=== PATIENT | female | born 1945 | race Caucasian/White ===

== ENCOUNTER 2018-06-30 14:42 | Emergency (ER) | payer MEDICARE, OTHER ==
[2018-06-30] MEDS ORDERED: TYLENOL EXTRA STRENGTH 500 MG PO STA (15:02)
[2018-06-30] MEDS ORDERED: Adacel Vial IM ONE ×2 (15:02→15:08)
--- NOTE | 2018-06-30 15:07 | ERPHSYRPT ---
- History of Present Illness Time Seen by Provider: 06/30/18 15:04 Source: patient Physician History: trip and fall today by accident, not dizzy, no loc, no neck pain, abrasion right forearm superficial, tender left hip, no NV, ambulating post fall, no other injury, mild positional ache left thigh Allergies/Adverse Reactions: moxifloxacin HCl [From Vigamox] Allergy (Severe, Verified 06/30/18 14:55) blood shot eye Home Medications: Amlodipine Besylate 10 mg [Norvasc 10 MG] 10 mg PO DAILY 10/02/12 [History] Carvedilol 12.5 mg PO BID 10/02/12 [History] Aspirin EC 81 mg [Ecotrin 81 mg] 81 mg PO DAILY 10/31/12 [History] Doxycycline Hyclate 100 mg PO BID 06/30/18 [History] Losartan Potassium 100 mg PO DAILY 06/30/18 [History] Hx Influenza Vaccination/Date Given: Yes Hx Pneumococcal Vaccination/Date Given: Yes - Review of Systems Constitutional: No Fever Eyes: No Vision Changes Ears, Nose, & Throat: No Epistaxis Respiratory: No Dyspnea Cardiac: No Chest Pain Abdominal/Gastrointestinal: No Abdominal Pain Musculoskeletal: Fall, No Back Pain, No Neck Pain Skin: Skin Lesions Neurological: No Dizziness, No Focal Weakness, No Headache - Past Medical History Pertinent Past Medical History: Yes Neurological History: TIA ENT History: Cataracts, Other Cardiac History: Hypertension Respiratory History: Bronchitis, Other Endocrine Medical History: No Pertinent History Musculoskeletal History: Osteoarthritis GI Medical History: No Pertinent History History: No Pertinent History Psycho-Social History: Anxiety Female Reproductive Disorders: No Pertinent History Other Medical History: Injections in the L knee a few years back, notes still has pain. - Past Surgical History Past Surgical History: Yes Neuro Surgical History: No Pertinent History Cardiac: No Pertinent History Respiratory: No Pertinent History Gastrointestinal: Cholecystectomy Genitourinary: No Pertinent History Musculoskeletal: No Pertinent History Female Surgical History: No Pertinent History Other Surgical History: ear surgery on right side, went thru bone. cataract - Social History Smoking Status: Former smoker How long have you smoked: 25yrs Exposure to second hand smoke: No Drug Use: none - Nursing Vital Signs Nursing Vital Signs: Initial Vital Signs Temperature 97.6 F 06/30/18 14:47 Pulse Rate 77 06/30/18 14:47 Respiratory Rate 16 06/30/18 14:47 Blood Pressure 141/47 06/30/18 14:47 O2 Sat by Pulse Oximetry 96 06/30/18 14:47 Pain Scale Pain Intensity 6 - Denys Coma Score Best Eye Response (Denys): (4) open spontaneously Best Verbal Response ([place]): (5) oriented Best Motor Response (Denys): (6) obeys commands Denys Total: 15 - Physical Exam General Appearance: no apparent distress Head Injury: no evidence of injury Eye Exam: eyes nml inspection ENT Exam: airway nml Neck Exam: supple, normal inspection, No tenderness Respiratory/Chest Exam: normal breath sounds, No chest tenderness, No respiratory distress Cardiovascular Exam: regular rate/rhythm Gastrointestinal Exam: soft, No tenderness Back Exam: No vertebral tenderness Extremity Exam: normal range of motion, pelvis stable, other (ori intact, tender left hip and knee, sen and pulses intact) Neurologic Exam: alert, oriented x 3, cooperative, normal mood/affect Skin Exam: abrasion - Course Nursing assessment & vital signs reviewed: Yes - Radiology Exams Femur X-ray Interpretation: Reviewed by me, No Fracture - CT Exams Pelvis CT Interpretation: Negative, Discussed w/radiologist Ordered Tests: Active Orders 24 hr Category Date Time Status FEMUR Stat Exams 06/30/18 15:56 Taken PELVIS WITHOUT CONTRAST [CT] Stat Exams 06/30/18 15:02 Taken Medication Summary Discontinued Medications Generic Name Dose Route Start Last Admin Trade Name Emilie PRN Reason Stop Dose Admin Acetaminophen 500 mg 06/30/18 15:02 06/30/18 15:09 Tylenol Extra Strength 500 Mg PO 06/30/18 15:03 500 mg STAT STA Administration Acetaminophen Confirm 06/30/18 15:08 Tylenol Extra Strength 500 Mg Administered 06/30/18 15:09 Dose 500 mg .ROUTE .STK-MED ONE Diphtheria/Tetanus/Acell Pertussis 0.5 ml 06/30/18 15:02 06/30/18 15:09 Adacel Vial IM 06/30/18 15:03 0.5 ml .ONCE ONE Administration Diphtheria/Tetanus/Acell Pertussis Confirm 06/30/18 15:08 Adacel Vial Administered 06/30/18 15:09 Dose 0.5 ml IM .STK-MED ONE - Progress Progress: improved Progress Note: 06/30/18 17:06 see your doctor, return if worse, ice and tylenol Counseled pt/family regarding: diagnosis, need for follow-up, rad results - Departure Departure Disposition: Home Clinical Impression: Contusion Qualifiers: Encounter type: initial encounter Contusion area: pelvic area Qualified Code(s) : S30.0XXA - Contusion of lower back and pelvis, initial encounter Condition: Stable Critical Care Time: No Referrals: JUANA NIEVES MD [Primary Care Provider] - Instructions: Contusion (DC)
[2018-06-30] MEDS ORDERED: TYLENOL EXTRA STRENGTH 500 MG ONE (15:08)
[2018-06-30 17:26] VITALS: BP 106/54; PULSE 67; O2SAT 94
--- NOTE | 2018-06-30 22:15 | XRAY ---
Indication: Left hip/femur pain following fall. Multiple contiguous axial images obtained through the pelvis with special attention to the osseous structures. Sagittal and coronal reformatted images obtained. Comparison: None Age-related osteopenia. No acute fracture, dislocation, or suspicious bony lesions. Incidental degenerative changes of the lower lumbar spine. Visualized noncontrasted soft tissues demonstrates sigmoid diverticulosis and mild scattered vascular calcifications. No free fluid/air. Impression: 1. Negative acute fracture/dislocation. 2. Incidental osteopenia, degenerative changes, and sigmoid diverticulosis. Comment: Preliminary interpretation was made by [facility]. No discrepancy. CTDI 58.04
--- NOTE | 2018-06-30 22:15 | XRAY ---
Indication: Pain following fall. Comparison: None 2 views of the left femur demonstrates osteopenia and moderate tricompartmental knee degenerative changes. No other bony, articular, or soft tissue abnormalities.
== END 2018-06-30 17:15 | disposition home or self-care (01) ==
LOC: ED 14:42
DX: S30.0XXA Contusion of lower back and pelvis, initial encounter (principal); Z79.899 Other long term (current) drug therapy; I10 Essential (primary) hypertension; Z86.73 Personal history of transient ischemic attack (TIA), and cerebral infarction without residual deficits
CPT/HCPCS: 72192; 73552; 90471; 90715; 99284; A9270-GY

== ENCOUNTER 2021-03-22 09:14 | Emergency (ER) | payer MEDICARE ==
[2021-03-22] MEDS ORDERED: XYLOCAINE 1% HCL 20 ML MDV IJ ONE (09:15)
[2021-03-22 09:35] VITALS: BP 139/79; PULSE 74
[2021-03-22] MEDS ORDERED: DELTASONE 20 MG PO ONE (09:50)
[2021-03-22] MEDS ORDERED: DUONEB 0.5-3 MG/3 ml Neb IH ONE ×2 (09:50→10:26)
[2021-03-22] MEDS ORDERED: DELTASONE 20 MG ONE (10:02)
--- NOTE | 2021-03-22 10:06 | ERPHSYRPT ---
- History of Present Illness Time Seen by Provider: 03/22/21 09:40 Source: patient Exam Limitations: no limitations Patient Subjective Stated Complaint: Cough Triage Nursing Assessment: Patient brought back to ED via w/c and transferred self to bed. Patient A+O X 3. Patient's skin pink, warm and dry. Patient complains of non productive cough for two weeks. Patient states she was COVID Positive two weeks ago. Lungs clear a/p cisco. Physician History: Patient is a 75-year-old female presents to our ED with a 3-week history of cough. Patient was Covid positive approximately 2 weeks ago. Patient has had a residual dry cough since. No chest pain. No shortness of breath. No posttussive emesis or syncope. Symptoms are mild to moderate in intensity. No specific worsening improving factors. Patient denies history of the same. No associated nausea vomiting. No diarrhea. No rash. No fever. No trauma. Patient voices no other complaints or concerns at this time. Timing/Duration: week(s) (3 weeks) Cough Quality/Degree: dry cough Possible Cause: no prior episodes, illness exposure Associated Symptoms: denies symptoms Allergies/Adverse Reactions: moxifloxacin HCl [From Vigamox] Allergy (Severe, Verified 03/22/21 09:25) blood shot eye Home Medications: Amlodipine Besylate 10 mg [Norvasc 10 MG] 10 mg PO DAILY 10/02/12 [History] carvediloL [Carvedilol] 12.5 mg PO BID 10/02/12 [History] Aspirin EC 81 mg [Ecotrin 81 mg] 81 mg PO DAILY 10/31/12 [History] Losartan Potassium 100 mg PO DAILY 06/30/18 [History] Hx Tetanus, Diphtheria Vaccination/Date Given: No Hx Influenza Vaccination/Date Given: Yes Hx Pneumococcal Vaccination/Date Given: No Immunizations Up to Date: Yes Travel Risk - International Travel Have you traveled outside of the country in past 3 weeks: No - Coronavirus Screening Are you exhibiting any of the following symptoms?: Yes Symptoms: Cough: New Onset, Shortness of Breath, Vomiting/Diarrhea, Headaches/Body Aches/Fatigue - Vaccine Status Have you recieved a Covid-19 vaccination: No - Review of Systems Constitutional: No Symptoms, No Fever, No Chills Eyes: No Symptoms Ears, Nose, & Throat: No Symptoms Respiratory: No Symptoms, No Cough, No Dyspnea Cardiac: No Symptoms, No Chest Pain, No Edema, No Syncope Abdominal/Gastrointestinal: No Symptoms, No Abdominal Pain, No Nausea, No Vomiting, No Diarrhea Genitourinary Symptoms: No Symptoms, No Dysuria Musculoskeletal: No Symptoms, No Back Pain, No Neck Pain Skin: No Symptoms, No Rash Neurological: No Symptoms, No Dizziness, No Focal Weakness, No Sensory Changes Psychological: No Symptoms Endocrine: No Symptoms Hematologic/Lymphatic: No Symptoms Immunological/Allergic: No Symptoms All Other Systems: Reviewed and Negative - Past Medical History Pertinent Past Medical History: Yes Neurological History: Stroke ENT History: Cataracts, Other Cardiac History: High Cholesterol, Hypertension Respiratory History: Bronchitis Endocrine Medical History: Liver Disease Musculoskeletal History: Osteoarthritis GI Medical History: No Pertinent History History: No Pertinent History Psycho-Social History: Anxiety Female Reproductive Disorders: No Pertinent History Other Medical History: SX HX: CHOLECYSTECTOMY AND "EAR" SURGERY. PER PATIENT SAW DR BERNARDO A FEW YEARS AGO DR [place]AY THOUGHT SHE MIGHT HAVE MS - Past Surgical History Past Surgical History: Yes Neuro Surgical History: No Pertinent History Cardiac: No Pertinent History Respiratory: No Pertinent History Gastrointestinal: Cholecystectomy Genitourinary: No Pertinent History Musculoskeletal: No Pertinent History Female Surgical History: No Pertinent History Other Surgical History: ear surgery on right side, went thru bone. cataract - Social History Smoking Status: Former smoker How long have you smoked: 25yrs Exposure to second hand smoke: No Drug Use: none Patient Lives Alone: No - Female History Hx Now: No - Nursing Vital Signs Nursing Vital Signs: Initial Vital Signs Temperature 98.0 F 03/22/21 09:29 Pulse Rate 74 03/22/21 09:29 Respiratory Rate 18 03/22/21 09:29 Blood Pressure 139/79 03/22/21 09:29 O2 Sat by Pulse Oximetry 97 03/22/21 09:29 Pain Scale Pain Intensity 0 - Physical Exam General Appearance: no apparent distress, alert Eye Exam: PERRL/EOMI, eyes nml inspection Ears, Nose, Throat Exam: normal ENT inspection, TMs normal, pharynx normal, moist mucous membranes Neck Exam: normal inspection, non-tender, supple, full range of motion Respiratory Exam: normal breath sounds, lungs clear, airway intact, No respiratory distress Cardiovascular Exam: regular rate/rhythm, normal heart sounds, normal peripheral pulses Gastrointestinal/Abdomen Exam: soft, normal bowel sounds, No tenderness Back Exam: normal inspection, No CVA tenderness, No vertebral tenderness Extremity Exam: normal inspection, normal range of motion Neurologic Exam: alert, oriented x 3, cooperative, normal mood/affect, sensation nml, No motor deficits Skin Exam: normal color, warm, dry, No rash Lymphatic Exam: No adenopathy SpO2 Interpretation: normal SpO2: 97 O2 Delivery: Room Air - Course Nursing assessment & vital signs reviewed: Yes - Radiology Exams Chest X-ray Interpretation: Teleradiologist Report (Portable chest demonstrates new mild diffuse hazy interstitial alveolar opacities left greater than right. Heart not enlarged. Bony thorax intact again with osteopenia degenerative changes and scoliosis.) Ordered Tests: Active Orders 24 hr Category Date Time Status CHEST 1 VIEW (PORTABLE) Stat Exams 03/22/21 09:40 Completed Medication Summary Discontinued Medications Generic Name Dose Route Start Last Admin Trade Name Freq PRN Reason Stop Dose Admin Albuterol/Ipratropium 3 ml 03/22/21 09:50 Ipratropium/Albuterol Sulfate 3 Ml Ampul.Neb IH 03/22/21 09:51 STAT ONE Ceftriaxone Sodium 1,000 mg 03/22/21 10:11 Ceftriaxone Sodium 1000 Mg Inj Vial IM 03/22/21 10:12 STAT ONE Prednisone 60 mg 03/22/21 09:50 03/22/21 10:03 Prednisone 20 Mg Tablet PO 03/22/21 09:51 60 mg STAT ONE Administration Prednisone Confirm 03/22/21 10:02 Prednisone 20 Mg Tablet Administered 03/22/21 10:03 Dose 60 mg .ROUTE .STK-MED ONE - Progress Progress: improved Air Movement: good Progress Note: Patient reassessed. She feels better after breathing treatment. Cough improved. Chest x-ray reveals new mild diffuse hazy interstitial alveolar opacities. Left greater than right. Heart not enlarged. Bony thorax intact. Osteopenia degenerative changes and scoliosis. O2 sat during ambulation/exertion is within normal limits. Vitals are normal. Patient received a dose of Rocephin in our ED. She also received a breathing treatment as well. A dose of prednisone was administered. Patient will be discharged home. Patient discharged home with a prescription for albuterol/Ventolin inhaler. A prescription for prednisone and azithromycin was forwarded to patient's pharmacy. Patient may take [id number] cough suppressants as needed. Patient agrees to follow-up with primary care doctor within 48 hours for evaluation. She voices no other complaints or concerns at this time. Portions of this note were created with voice recognition technology. There may be grammatical, spelling, punctuation or sound alike errors 03/22/21 10:17 Vitals are within normal limits. Blood pressure 112/57. Heart rate 74. O2 sat 97%. Patient afebrile 03/22/21 10:19 Blood Culture(s) Obtained: No Antibiotics given: No Counseled pt/family regarding: diagnosis, need for follow-up, rad results - Departure Departure Disposition: Home Clinical Impression: Cough, Pneumonia, Bronchitis Condition: Stable Critical Care Time: No Referrals: JOHNNY BERMAN [Primary Care Provider] - Follow up/PCP as directed Additional Instructions: Discharge/Care Plan EKATERINAHAWK WINTER was seen on 03/22/21 in the Emergency Room. The patient was counseled regarding Diagnosis,Lab results, Imaging studies, need for follow up and when to return to the Emergency Room. Prescriptions given: Discharge Note I have spoken with the patient and/or caregivers. I have explained the patient's condition, diagnosis and treatment plan based on the information available to me at this time. I have answered the patient's and/or caregiver's questions and addressed any concerns. The patient and/or caregivers have as good understanding of the patient's diagnosis, condition and treatment plan as can be expected at this point. The vital signs have been stable. The patient's condition is stable and appropriate for discharge from the emergency department. The patient will pursue further outpatient evaluation with the primary care physician or other designated or consulting physician as outlined in the discharge instructions. The patient and/or caregivers are agreeable to this plan of care and follow-up instructions have been explained in detail. The patient and/or caregivers have received these instruction. The patient/and or caregivers are aware that any significant change in condition or worsening of symptoms should prompt an immediate return to this or the closest emergency department or call 911. Prescriptions: Prednisone 10 mg [Deltasone 10 mg] 40 mg PO DAILY 3 Days #12 tablet Albuterol 8 gm Mdi Hfa [Ventolin Hfa MDI] 8 gm IH Q4H #1 gm Azithromycin 250 mg [Zithromax 250 MG TABLET] 250 mg PO ZPACK #6 tablet
--- NOTE | 2021-03-22 10:06 | XRAY ---
Indication: Cough. Comparison: There are 2014. Portable chest demonstrates new mild diffuse hazy interstitial alveolar opacities, left greater than right. Heart not enlarged. Bony thorax intact again with osteopenia, degenerative changes, and scoliosis.
[2021-03-22] MEDS ORDERED: Rocephin 1000 MG INJ IM ONE (10:11)
[2021-03-22] MEDS ORDERED: Rocephin 1000 MG INJ ONE (10:36)
[2021-03-22 10:51] VITALS: O2SAT 94
== END 2021-03-22 11:13 | disposition home or self-care (01) ==
LOC: ED 09:14
DX: J18.9 Pneumonia, unspecified organism (principal); J20.9 Acute bronchitis, unspecified; R05.9 Cough, unspecified; Z86.16 Personal history of COVID-19; E78.5 Hyperlipidemia, unspecified; I10 Essential (primary) hypertension; Z79.52 Long term (current) use of systemic steroids; Z79.899 Other long term (current) drug therapy
CPT/HCPCS: 71045; 94640; 96372; 99284; J0696; A9270-GY

== ENCOUNTER 2022-10-12 10:58 | Emergency (ER) | payer MEDICARE ==
--- NOTE | 2022-10-12 11:03 | ERPHSYRPT ---
- History of Present Illness Time Seen by Provider: 10/12/22 11:02 Historian: patient Exam Limitations: no limitations Physician History: This is a 77-year-old obese white female patient of Dr. Bojorquez who is her primary care provider, Dr. Lamb who is her mill representative and Dr. Pinedo, who is her fitness assistant and presents with substernal, central, nonradiating chest tightness that has been intermittent since last evening. This morning the tightness became more intense. Patient saw her fitness assistant 1 week ago and was given a clean bill of health per her report. Patient is not short of breath. She does have a history of hypertension and wears oxygen at night for COPD issues. She has a history of CVA, TIAs and anxiety. Additional, independent medical history was provided by the patient's son. Timing/Duration: yesterday, intermittent, worse Activities at Onset: none Quality: tightness Location: substernal, central Chest Pain Radiation: no radiation Severity of Pain-Max: mild Severity of Pain-Current: mild (Moderate to moderate) Associated Symptoms: denies symptoms Prior Chest Pain/Cardiac Workup: recently seen/treated (By her fitness assistant) Nitro Today/Relief: no nitro taken today Aspirin Treatment Today: 81 mg x 1, provided at home Allergies/Adverse Reactions: moxifloxacin HCl [From Vigamox] Allergy (Severe, Verified 03/22/21 09:25) blood shot eye Home Medications: Amlodipine Besylate 10 mg [Norvasc 10 MG] 10 mg PO DAILY 10/02/12 [History] carvediloL [Carvedilol] 12.5 mg PO BID 10/02/12 [History] Aspirin EC 81 mg [Ecotrin 81 mg] 81 mg PO DAILY 10/31/12 [History] Losartan Potassium 100 mg PO DAILY 06/30/18 [History] Hx Tetanus, Diphtheria Vaccination/Date Given: No Hx Influenza Vaccination/Date Given: Yes Hx Pneumococcal Vaccination/Date Given: No Travel Risk - International Travel Have you traveled outside of the country in past 3 weeks: No - Coronavirus Screening Are you exhibiting any of the following symptoms?: No Close contact with a COVID-19 positive Pt in past 14-21 Days: No - Vaccine Status Have you recieved a Covid-19 vaccination: No - Review of Systems Constitutional: No Symptoms Eyes: No Symptoms Ears, Nose, & Throat: No Symptoms Respiratory: No Symptoms Cardiac: Chest Pain (Described as a nonradiating substernal, central tightness) Abdominal/Gastrointestinal: No Symptoms Genitourinary Symptoms: No Symptoms Musculoskeletal: No Symptoms Skin: No Symptoms Neurological: No Symptoms Psychological: No Symptoms Endocrine: No Symptoms Hematologic/Lymphatic: No Symptoms Immunological/Allergic: No Symptoms All Other Systems: Reviewed and Negative - Past Medical History Pertinent Past Medical History: Yes Neurological History: Stroke, TIA ENT History: Cataracts, Other Cardiac History: Hypertension Respiratory History: Other Endocrine Medical History: Other Musculoskeletal History: Osteoarthritis GI Medical History: No Pertinent History History: No Pertinent History Psycho-Social History: Anxiety Female Reproductive Disorders: No Pertinent History Other Medical History: HISTORY OF MINI-STROKES, A CT SCAN SHOWED A PRIOR CVA. PROBLEMS WITH LIVER AND KIDNEYS, SHE IS TO SEE BOTH DOCTORS SOON. SOB. SHE USES O2 AT NIGHT, UNSURE OF THE AMOUNT SHE USES. - Past Surgical History Past Surgical History: Yes Neuro Surgical History: No Pertinent History Cardiac: No Pertinent History Respiratory: No Pertinent History Gastrointestinal: Cholecystectomy Genitourinary: No Pertinent History Musculoskeletal: No Pertinent History Female Surgical History: No Pertinent History Other Surgical History: ear surgery on right side, went thru bone. cataract - Social History Smoking Status: Former smoker How long have you smoked: 25yrs Exposure to second hand smoke: No Drug Use: none Patient Lives Alone: No - Nursing Vital Signs Nursing Vital Signs: Initial Vital Signs Temperature 98.7 F 10/12/22 11:00 Pulse Rate 62 10/12/22 11:00 Respiratory Rate 20 10/12/22 11:00 Blood Pressure 145/91 10/12/22 11:00 O2 Sat by Pulse Oximetry 99 10/12/22 11:00 Pain Scale Pain Intensity 0 - Physical Exam General Appearance: no apparent distress, alert, anxiety, obese Eye Exam: PERRL/EOMI, eyes nml inspection, EOM palsy/anisocoria Ears, Nose, Throat Exam: moist mucous membranes Neck Exam: normal inspection, non-tender, supple, full range of motion Respiratory Exam: normal breath sounds, chest tenderness, lungs clear (Described as a tightness), airway intact, No respiratory distress Cardiovascular Exam: regular rate/rhythm, normal heart sounds, normal peripheral pulses Gastrointestinal/Abdomen Exam: soft, normal bowel sounds, No tenderness Pelvic Exam: not done Rectal Exam: not done Back Exam: normal inspection, normal range of motion, No CVA tenderness, No vertebral tenderness Extremity Exam: normal inspection, normal range of motion, pelvis stable Neurologic Exam: alert, oriented x 3, cooperative, 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 nml as tested, normal mood/affect, nml cerebellar function, nml station & gait, sensation nml Skin Exam: normal color, warm, dry Lymphatic Exam: No adenopathy SpO2 Interpretation: normal O2 Delivery: Room Air - Course Nursing assessment & vital signs reviewed: Yes EKG Interpreted by Me: RATE (61), Sinus Rhythm, NORMAL AXIS, NORMAL INTERVALS, Left Bundle Branch Block, NORMAL ST-T, Other (No acute ischemic changes on today's twelve-lead EKG.) Ordered Tests: Active Orders 24 hr Category Date Time Status EKG-ER Only STAT Care 10/12/22 11:16 Active IV Insertion STAT Care 10/12/22 11:16 Active Pulse Oximetry (ED) STAT Care 10/12/22 11:16 Active CHEST 1 VIEW (PORTABLE) Stat Exams 10/12/22 11:16 Completed CBC W DIFF Stat Lab 10/12/22 11:20 Completed CMP Stat Lab 10/12/22 11:20 Completed NT PRO BNPII Stat Lab 10/12/22 11:20 Completed PROTIME WITH INR Stat Lab 10/12/22 11:20 Completed TROPONIN Q4H Lab 10/12/22 11:20 Completed TROPONIN Q4H Lab 10/12/22 14:20 Completed TROPONIN Q4H Lab 10/12/22 19:30 Ordered Medication Summary Generic Name Dose Route Start Last Admin Trade Name Freq PRN Reason Stop Dose Admin Sodium Chloride 500 mls @ 500 mls/hr 10/12/22 15:07 10/12/22 15:11 Sodium Chloride 0.9% 500 Ml IV 10/12/22 16:06 500 mls/hr .Q1H ONE Administration Discontinued Medications Generic Name Dose Route Start Last Admin Trade Name Freq PRN Reason Stop Dose Admin Aspirin 324 mg 10/12/22 11:16 10/12/22 11:20 Aspirin 81 Mg Tab.Chew PO 10/12/22 11:17 243 mg STAT ONE Administration Sodium Chloride Confirm 10/12/22 15:09 Sodium Chloride 0.9% 500 Ml Administered 10/12/22 15:10 Dose 500 mls @ ud IV .STK-MED ONE Morphine Sulfate 2 mg 10/12/22 11:28 10/12/22 11:33 Morphine Sulfate 2 Mg/Ml Inj IV 10/12/22 11:29 2 mg STAT ONE Administration Morphine Sulfate Confirm 10/12/22 11:33 Morphine Sulfate 2 Mg/Ml Inj Administered 10/12/22 11:34 Dose 2 mg .ROUTE .STK-MED ONE Morphine Sulfate 2 mg 10/12/22 13:39 10/12/22 13:44 Morphine Sulfate 2 Mg/Ml Inj IV 10/12/22 13:40 2 mg STAT ONE Administration Morphine Sulfate Confirm 10/12/22 13:44 Morphine Sulfate 2 Mg/Ml Inj Administered 10/12/22 13:45 Dose 2 mg .ROUTE .STK-MED ONE Ondansetron HCl 4 mg 10/12/22 11:28 10/12/22 11:33 Ondansetron Hcl 4 Mg/2 Ml Vial IV 10/12/22 11:29 4 mg STAT ONE Administration Ondansetron HCl Confirm 10/12/22 11:32 Ondansetron Hcl 4 Mg/2 Ml Vial Administered 10/12/22 11:33 Dose 4 mg .ROUTE .STK-MED ONE Lab/Rad Data: Laboratory Result Diagrams 10/12/22 11:20 10/12/22 11:20 Laboratory Results 10/12/22 10/12/22 10/12/22 Range/Units 14:20 11:20 11:20 WBC (4.0-10.5) x10^3/uL RBC (4.1-5.4) x10^6/uL Hgb (12.0-16.0) g/dL Hct (35-47) % MCV (78-100) fL MCH (26-32) pg MCHC (32-36) g/dL RDW (11.5-14.0) % Plt Count (150-450) x10^3/uL MPV (7.5-11.0) fL Gran % (36.0-66.0) % Immature Gran % (Auto) (0.00-0.4) % Nucleat RBC Rel Count (0.00-0.1) % Eos # (Auto) (0-0.5) x10^3/uL Immature Gran # (Auto) (0.00-0.03) x10^3u/L Absolute Lymphs (auto) (1.0-4.6) x10^3/uL Absolute Monos (auto) (0.0-1.3) x10^3/uL Absolute Nucleated RBC (0.00-0.01) x10^3u/L Lymphocytes % (24.0-44.0) % Monocytes % (0.0-12.0) % Eosinophils % (0.00-5.0) % Basophils % (0.0-0.4) % Absolute Granulocytes (1.4-6.9) x10^3/uL Basophils # (0-0.4) x10^3/uL PT 11.2 (9.4-12.5) SECONDS INR 1.03 (0.8-3.0) Sodium (137-145) mmol/L Potassium (3.5-5.1) mmol/L Chloride (98-107) mmol/L Carbon Dioxide (22-30) mmol/L Anion Gap (5-15) MEQ/L BUN (7-17) mg/dL Creatinine (0.52-1.04) mg/dL Estimated GFR ML/MIN Glucose (74-106) mg/dL Calcium (8.4-10.2) mg/dL Total Bilirubin (0.2-1.3) mg/dL AST (14-36) U/L ALT (0-35) U/L Alkaline Phosphatase (38-126) U/L Troponin I 0.014 0.020 (0.000-0.034) ng/mL NT-Pro-B Natriuret Pep 475 (<300) pg/mL Serum Total Protein (6.3-8.2) g/dL Albumin (3.5-5.0) g/dL 10/12/22 10/12/22 Range/Units 11:20 11:20 WBC 4.7 (4.0-10.5) x10^3/uL RBC 4.50 (4.1-5.4) x10^6/uL Hgb 14.8 (12.0-16.0) g/dL Hct 43.4 (35-47) % MCV 96.4 (78-100) fL MCH 32.9 H (26-32) pg MCHC 34.1 (32-36) g/dL RDW 12.2 (11.5-14.0) % Plt Count 178 (150-450) x10^3/uL MPV 10.2 (7.5-11.0) fL Gran % 45.0 (36.0-66.0) % Immature Gran % (Auto) 0.2 (0.00-0.4) % Nucleat RBC Rel Count 0.0 (0.00-0.1) % Eos # (Auto) 0.13 (0-0.5) x10^3/uL Immature Gran # (Auto) 0.01 (0.00-0.03) x10^3u/L Absolute Lymphs (auto) 1.80 (1.0-4.6) x10^3/uL Absolute Monos (auto) 0.58 (0.0-1.3) x10^3/uL Absolute Nucleated RBC 0.00 (0.00-0.01) x10^3u/L Lymphocytes % 38.5 (24.0-44.0) % Monocytes % 12.4 H (0.0-12.0) % Eosinophils % 2.8 (0.00-5.0) % Basophils % 1.1 (0.0-0.4) % Absolute Granulocytes 2.11 (1.4-6.9) x10^3/uL Basophils # 0.05 (0-0.4) x10^3/uL PT (9.4-12.5) SECONDS INR (0.8-3.0) Sodium 139 (137-145) mmol/L Potassium 3.9 (3.5-5.1) mmol/L Chloride 102 (98-107) mmol/L Carbon Dioxide 27 (22-30) mmol/L Anion Gap 13.3 (5-15) MEQ/L BUN 22 H (7-17) mg/dL Creatinine 1.02 (0.52-1.04) mg/dL Estimated GFR 55.7 ML/MIN Glucose 115 H (74-106) mg/dL Calcium 9.6 (8.4-10.2) mg/dL Total Bilirubin 4.50 H (0.2-1.3) mg/dL AST 55 H (14-36) U/L ALT 41 H (0-35) U/L Alkaline Phosphatase 77 (38-126) U/L Troponin I (0.000-0.034) ng/mL NT-Pro-B Natriuret Pep (<300) pg/mL Serum Total Protein 6.8 (6.3-8.2) g/dL Albumin 4.4 (3.5-5.0) g/dL - Progress Progress: improved, re-examined Air Movement: good Progress Note: 10/12/22 12:46 The chest x-ray was interpreted by the radiologist and I reviewed the impression. There is no evidence of any acute cardiopulmonary process. This patient's medical issue is 1 of moderate complexity. Level complexity in the work-up performed is based on review of the patient's past medical history, review the patient's medication list, review of the patient's drug allergy list, history of present illness and physical findings on examination. The work-up includes twelve-lead EKG, placement of intravenous line, 324 mg baby aspirin chewable, CBC, CMP, troponin level, chest x-ray. The above stated work-up results were reviewed and interpreted by me except for the chest x-ray which I reviewed the impression. Patient initial work-up shows no acute, emergent medical issue. We will repeat the troponin and twelve-lead EKG in 3 hours from the initial. If this is normal we will discharge the patient to home with instruction to follow-up with her primary care provider and fitness assistant for further management. 10/12/22 16:02 Patient has had 2 twelve-lead EKGs do not show any acute ischemic changes. The repeat, 3-hour EKG shows a normal sinus rhythm with a heart rate of 61 bpm. There is persistent left bundle branch block but no evidence of acute ischemia. It is unchanged from the prior twelve-lead EKG. This twelve-lead EKG was performed on 10/12/2022 at 1457. 10/12/22 16:03 Patient received morphine x2 doses and this dropped her blood pressure slightly. We provided her with a 500 mL bolus of saline and now her systolic blood pressure is in the 110s. She states that she no longer has that pain sensation but only very minor tightness. Patient and her son both stated that her blood pressure has been slowly decreasing over the last few weeks and her fitness assistant has been decreasing her blood pressure medication. Blood Culture(s) Obtained: Yes Antibiotics given: No Counseled pt/family regarding: lab results, diagnosis, need for follow-up, rad results Medical Desision Making - Independent Historian Additional History obtained from: Child - Diagnostic Testing Diagnostic test were ordered, analyzed, and reviewed by me: Yes Radiological Interpretation: Reviewed by me, Teleradiologist Report - Risk of complications Low Risk: Low risk of morbidity from additional dx testing or treatment - Departure Departure Disposition: Home Clinical Impression: Chest tightness Condition: Stable Critical Care Time: No Referrals: CAMILLA BOJORQUEZ MD [Primary Care Provider] - Follow up/PCP as directed Additional Instructions: Hold your blood pressure medication until you speak with your prescribing provider. Contact both your primary care provider and your fitness assistant tomorrow, 10/13/2022, for further evaluation and management. Keep a log of your blood pressure readings for tonight and tomorrow and let your providers know what those readings are without your blood pressure medication. Return to the emergency department if your symptoms recur.
[2022-10-12 11:06] VITALS: TEMP 98.7
[2022-10-12] MEDS ORDERED: BABY ASPIRIN 81 MG CHEW PO ONE (11:16)
[2022-10-12] MEDS ORDERED: Zofran 4 MG/2 ML VIAL IV ONE (11:28)
[2022-10-12] MEDS ORDERED: MORPHINE SULFATE 2 MG INJ IV ONE ×2 (11:28→13:39)
[2022-10-12 11:31] LABS: Absolute Neutrophil Ct (ANC) 2.11 x10^3/uL (1.4-6.9); BASOPHIL % 1.1 % (0.0-0.4); Basophil (Absolute #) 0.05 x10^3/uL (0-0.4); Eosinophil % 2.8 % (0.00-5.0); Eosinophil (Absolute #) 0.13 x10^3/uL (0-0.5); Hematocrit 43.4 % (35-47); Hemoglobin 14.8 g/dL (12.0-16.0); IMMATURE GRAN # 0.01 x10^3u/L (0.00-0.03); IMMATURE GRAN % 0.2 % (0.00-0.4); Lymphocytes % 38.5 % (24.0-44.0); Mean Cell Volume 96.4 fL (78-100); Mean Corpuscular Hemoglobin 32.9 pg (26-32); Mean Corpuscular Hgb Concent. 34.1 g/dL (32-36); Mean Platelet Volume 10.2 fL (7.5-11.0); Monocyte (Absolute #) 0.58 x10^3/uL (0.0-1.3); Monocytes % 12.4 % (0.0-12.0); Platelet Count 178 x10^3/uL (150-450); Red Cell Distribution Width 12.2 % (11.5-14.0); White Blood Count 4.7 x10^3/uL (4.0-10.5)
[2022-10-12] MEDS ORDERED: Zofran 4 MG/2 ML VIAL ONE (11:32)
[2022-10-12] MEDS ORDERED: MORPHINE SULFATE 2 MG INJ ONE ×2 (11:33→13:44)
[2022-10-12 11:45] LABS: ALBUMIN 4.4 g/dL (3.5-5.0); ANION GAP 13.3 MEQ/L (5-15); BILIRUBIN,TOTAL 4.5 mg/dL (0.2-1.3); Calcium 9.6 mg/dL (8.4-10.2); Creatinine 1 1.02 mg/dL (0.52-1.04); EST GLOMERULAR FILTRATION RATE 55.7 ML/MIN; Potassium 3.9 mmol/L (3.5-5.1); Total Protein 6.8 g/dL (6.3-8.2)
[2022-10-12 11:46] LABS: INR 1.03 (0.8-3.0); PROTIME 11.2 SECONDS (9.4-12.5)
[2022-10-12 11:57] LABS: TROPONIN 0.02 ng/mL (0.000-0.034)
--- NOTE | 2022-10-12 12:16 | XRAY ---
Indication: Chest pain. Comparison: March 29, 2021 Portable chest is now clear. Heart not enlarged. Bony thorax intact again with osteopenia and mild degenerative changes. Impression: Nonacute chest with chronic features.
[2022-10-12] MEDS ORDERED: Sodium Chloride 0.9% 500 ML 500 ML IV ONE ×2 (15:07→15:09)
[2022-10-12 16:27] VITALS: BP 110/50; PULSE 61; RESP 24; O2SAT 95
== END 2022-10-12 16:38 | disposition home or self-care (01) ==
LOC: ED 10:58
DX: R07.9 Chest pain, unspecified (principal); I10 Essential (primary) hypertension; Z79.899 Other long term (current) drug therapy; Z28.310 Unvaccinated for COVID-19; Z99.81 Dependence on supplemental oxygen; Z86.73 Personal history of transient ischemic attack (TIA), and cerebral infarction without residual deficits
CPT/HCPCS: 36000; 36415; 71045; 80053; 83880; 84484; 85025; 85610; 93005; 94760; 96360; 96374; 96375; 96376; 99284; J2270; J2405; A9270-GY

== ENCOUNTER 2023-08-14 11:52 | Emergency (ER) | payer MEDICARE, OTHER ==
[2023-08-14 12:10] VITALS: PULSE 54; RESP 18; TEMP 97.7
--- NOTE | 2023-08-14 12:49 | ERPHSYRPT ---
- History of Present Illness Time Seen by Provider: 08/14/23 12:49 Source: patient Exam Limitations: no limitations Patient Subjective Stated Complaint: Back pain Triage Nursing Assessment: Patient brought back to ED per w/c and transferred self to bed with assist 1. Patient A+O X3. Patient's skin pink, warm and dry. Patient complains of lower mid back pain 8/10 for the last few weeks. Patient denies injury or trauma. Physician History: Sent over from Dr. Weiner office with concern of cauda equina syndrome. The patient, with a history of chronic back pain, presents with a significant increase in pain severity over the last three days. The pain is localized to the middle of the lower back and does not radiate to either side. They deny any recent changes or precipitating events. They have had previous imaging, believed to be an MRI, but have never received injections for their back pain. In addition to the back pain, the patient reports a loss of bladder control that began two to three months ago. They deny any numbness or tingling in their legs, although they did note a slight tingling sensation when examined. The patient also reports difficulty with mobility, including an inability to climb stairs or sit up from a lying position. The patient is resistant to the idea of undergoing an MRI due to the severity of their pain, expressing concern that they would not be able to tolerate the procedure. Timing/Duration: day(s) (3), worse Method of Injury: unknown Quality: sharp, stabbing Back Pain Location: lumbar spine Severity of Pain-Max: severe Severity of Pain-Current: severe Modifying Factors: Worsens With: movement Associated Symptoms: urinary incontinence, loss of bowel control, No fever, No chills Previous symptoms: same symptoms as today Allergies/Adverse Reactions: moxifloxacin HCl [From Vigamox] Allergy (Severe, Verified 08/14/23 12:00) blood shot eye Home Medications: Amlodipine Besylate 10 mg [Norvasc 10 MG] 10 mg PO DAILY 10/02/12 [History] carvediloL [Carvedilol] 12.5 mg PO BID 10/02/12 [History] Aspirin EC 81 mg [Ecotrin 81 mg] 81 mg PO DAILY 10/31/12 [History] Losartan Potassium 100 mg PO DAILY 05/18/19 [History] Hx Tetanus, Diphtheria Vaccination/Date Given: No Hx Influenza Vaccination/Date Given: Yes Hx Pneumococcal Vaccination/Date Given: Yes Immunizations Up to Date: Yes Travel Risk - International Travel Have you traveled outside of the country in past 3 weeks: No - Emerging Infectious Disease Are you exhibiting symptoms associated with any current EIDs: No - Review of Systems All Other Systems: Reviewed and Negative - Past Medical History Pertinent Past Medical History: Yes Neurological History: Stroke, TIA ENT History: Cataracts, Other Cardiac History: Hypertension Respiratory History: Other Endocrine Medical History: Other Musculoskeletal History: Osteoarthritis GI Medical History: No Pertinent History History: No Pertinent History Psycho-Social History: Anxiety Female Reproductive Disorders: No Pertinent History Other Medical History: HISTORY OF MINI-STROKES, A CT SCAN SHOWED A PRIOR CVA. PROBLEMS WITH LIVER AND KIDNEYS, SHE IS TO SEE BOTH DOCTORS SOON. SOB. SHE USES O2 AT NIGHT, UNSURE OF THE AMOUNT SHE USES. - Past Surgical History Past Surgical History: Yes Neuro Surgical History: No Pertinent History Cardiac: No Pertinent History Respiratory: No Pertinent History Gastrointestinal: Cholecystectomy Genitourinary: No Pertinent History Musculoskeletal: No Pertinent History Female Surgical History: No Pertinent History Other Surgical History: ear surgery on right side, went thru bone. cataract - Social History Smoking Status: Former smoker How long have you smoked: 25yrs Exposure to second hand smoke: No Drug Use: none Patient Lives Alone: No - Social Determinants of Health Will the patient participate in the screening: Yes Do you worry about a steady place to live?: No Do you have any problems with any of the following?: No known problems In the past 12 months,have you had to go without utilities?: No Transportation Issues: No Has anyone in your support network made you feel unsafe?: No Have you or anyone in your house had to go without enough: No - Nursing Vital Signs Nursing Vital Signs: Initial Vital Signs Temperature 97.7 F 08/14/23 12:01 Pulse Rate 54 L 08/14/23 12:01 Respiratory Rate 18 08/14/23 12:01 Blood Pressure 135/69 08/14/23 12:01 O2 Sat by Pulse Oximetry 98 08/14/23 12:01 Pain Scale Pain Intensity 4 - Physical Exam General Appearance: moderate distress SpO2: 98 Comments: Flexibility of spine: limited + midline lumbar spine tenderness. Tenderness to palpation on bilateral paraspinal area. ROM: full extension of the leg at the knee. Full dorsiflexion of the great toe. Full plantar flexion of toe and foot. Sensation on lower extremities: normal. Strength on lower extremities: normal. Pedal pulses: present. Positive straight leg raise test. + MAUREEN + FADIR - Course Nursing assessment & vital signs reviewed: Yes - CT Exams Lumbar Spine CT Interpretation: Tele-radiologist Report, No Fracture, Other (DDD, no obvious disc bulge) Ordered Tests: Active Orders 24 hr Category Date Time Status LUMBAR SPINE W/O [CT] Stat Exams 08/14/23 12:51 Completed MRI L-SPINE WITHOUT CONTRAST [MRI] Stat Exams 08/14/23 14:55 Completed Medication Summary Discontinued Medications Generic Name Dose Route Start Last Admin Trade Name Freq PRN Reason Stop Dose Admin Hydrocodone Bitart/Acetaminophen 2 tab 08/14/23 17:44 08/14/23 17:47 Hydrocodone/Apap 5/325 1 Tab Tablet PO 08/14/23 17:45 2 tab SENT HOME W/ PATIENT ONE Administration Hydrocodone Bitart/Acetaminophen Confirm 08/14/23 17:46 Hydrocodone/Apap 5/325 1 Tab Tablet Administered 08/14/23 17:47 Dose 2 tab .ROUTE .STK-MED ONE Cyclobenzaprine HCl 10 mg 08/14/23 12:50 08/14/23 14:19 Cyclobenzaprine Hcl 10 Mg Tablet PO 08/14/23 12:51 10 mg STAT ONE Administration Cyclobenzaprine HCl Confirm 08/14/23 13:58 Cyclobenzaprine Hcl 10 Mg Tablet Administered 08/14/23 13:59 Dose 10 mg .ROUTE .STK-MED ONE Cyclobenzaprine HCl 10 mg 08/14/23 17:45 08/14/23 17:49 Cyclobenzaprine Hcl 10 Mg Tablet PO 09/13/23 17:44 10 mg Q8H NICK Administration Cyclobenzaprine HCl Confirm 08/14/23 17:45 Cyclobenzaprine Hcl 10 Mg Tablet Administered 08/14/23 17:46 Dose 20 mg .ROUTE .STK-MED ONE Dexamethasone Sodium Phosphate 10 mg 08/14/23 12:50 08/14/23 14:17 Dexamethasone Sod Phosphate 10 Mg/Ml PO 08/14/23 12:51 10 mg STAT ONE Administration Dexamethasone Sodium Phosphate Confirm 08/14/23 13:59 Dexamethasone Sod Phosphate 10 Mg/Ml Administered 08/14/23 14:00 Dose 10 mg .ROUTE .STK-MED ONE Morphine Sulfate 2 mg 08/14/23 12:49 08/14/23 14:17 Morphine Sulfate 2 Mg/Ml Inj IM 08/14/23 12:50 2 mg STAT ONE Administration Morphine Sulfate Confirm 08/14/23 13:58 Morphine Sulfate 2 Mg/Ml Inj Administered 08/14/23 13:59 Dose 2 mg .ROUTE .STK-MED ONE MRI lumbar spine shows degenerative disc disease without disc bulge. No nerve compression or cauda equina. - Progress Progress: improved Progress Note: CT scan showed DDD with no definite disc bulge, but due to the nature of her sxs once she was comfortable MRI lumbar spine was completed MRI correlated with the previous CT scan. She responded well to the medications given. Will send home with [place], Flexeril and Voltaren. Discussed the importance of only using the [place] and Flexeril if pain is severe. Strongly recommended physical therapy. Follow up with Dr. Weiner to discuss pain management referral . Counseled pt/family regarding: diagnosis, need for follow-up, rad results Medical Desision Making - Diagnostic Testing Diagnostic test were ordered, analyzed, and reviewed by me: Yes Radiological Interpretation: Reviewed by me, Teleradiologist Report - Risk of complications The pt has a mod risk of morbidity or mortality based on: Need for prescription drug management - Departure Departure Disposition: Home Clinical Impression: DDD (degenerative disc disease), lumbar, Back pain Condition: Good Critical Care Time: No Referrals: OREN WEINER DO [Primary Care Provider] - Follow up/PCP as directed Instructions: Low Back Pain (DC) Additional Instructions: Strongly encouraged the patient to only use [place] and Flexeril if pain becomes so severe she can no longer take it. Take diclofenac with food and advised to no longer take [id number] NSAIDs with this medication. Strongly recommended physical therapy. Follow-up with primary care physician. Return to emergency room if symptoms return. Prescriptions: Hydrocodone/Acetaminophen [Hydrocodone-Acetamin 5-325 mg] 1 tab PO Q6HPRN PRN 3 Days #12 tablet MDD 4 PRN Reason: Pain Tizanidine HCl 4 mg PO BID PRN 10 Days #20 tablet PRN Reason: Muscle Spasms Diclofenac Sodium 50 mg [Voltaren 50 mg] 50 mg PO BID PRN 30 Days #60 tablet PRN Reason: Pain
[2023-08-14] MEDS ORDERED: Cyclobenzaprine 10 MG ONE ×2 (13:58→17:45)
[2023-08-14] MEDS ORDERED: MORPHINE SULFATE 2 MG INJ ONE (13:58)
[2023-08-14] MEDS ORDERED: DECADRON 10MG INJ. ONE (13:59)
[2023-08-14] MEDS: DECADRON 10MG INJ. PO ONE (14:17)
[2023-08-14] MEDS: MORPHINE SULFATE 2 MG INJ IM ONE (14:17)
[2023-08-14] MEDS: Cyclobenzaprine 10 MG PO ONE (14:19)
--- NOTE | 2023-08-14 14:33 | XRAY ---
Indication: Chronic pain for years. Multiple contiguous axial images obtained through the lumbar spine. Sagittal and coronal reformatted images obtained. Comparison: Lumbar radiograph June 14, 2022. Osseous structures remain demineralized. No acute fracture or suspicious bony lesions. There remains minimal/mild broad-based multilevel degenerative disc osteophyte complex again greatest at L4-L5. Stable L2-L5 degenerative vacuum disc phenomena and bilateral L4-S1 degenerative facet hypertrophy. Incidental superior T12 Schmorl node. Sagittal and axial coronal reformatted images again demonstrates mild double curvature scoliosis and multilevel disc space narrowing. No acute compression fracture or subluxation. Visualized noncontrasted soft tissues again demonstrates mild scattered aortoiliac calcifications and cholecystotomy clips. Impression: Chronic findings including osteopenia, multilevel degenerative spondylosis, scoliosis, and arteriosclerotic disease similar in appearance to the comparison lumbar radiograph. No acute findings.
--- NOTE | 2023-08-14 17:01 | XRAY ---
Indication: Low back pain. Incontinence. Weakness. Sagittal and axial MRI lumbar spine performed without contrast using T1 and T2-weighted sequences. Comparison: June 28, 2022 Sagittal images again demonstrates normal lumbar lordosis with mild double curvature scoliosis. Stable multilevel thoracolumbar degenerative disc desiccation signal with disc space narrowing again greatest at L5-S1. Stable incidental small superior T12 Schmorl node and diffuse red marrow conversion. No acute fracture or suspicious bony lesions. Conus medullaris again terminates at L1. Sagittal images through T12-L2 disc level again demonstrates minimal broad-based disc bulge without focal disc herniation or canal stenosis. Axial images at L2-L3 levels again demonstrates mild bilateral foraminal narrowing due to broad-based disc bulge unchanged. No focal disc herniation or canal stenosis. Mild bilateral degenerative facet arthropathy. At L3-L4 level, there is stable minimal annular disc bulge minimally effacing the thecal sac and producing minimal bilateral foraminal narrowing. No focal disc herniation or canal stenosis. Moderate bilateral degenerative facet arthropathy. At L4-L5 level, there is stable minimal annular disc bulge greater towards the right minimally effacing thecal sac and producing bilateral foraminal narrowing right greater than left. No focal disc herniation or canal stenosis. Moderate bilateral degenerative facet arthropathy. At L5-S1 level, there is again no focal disc herniation, spinal canal, or foraminal stenosis. Mild bilateral degenerative facet arthropathy. Impression: 1. Stable minimal/mild multilevel degenerative disc disease detailed level by level. 2. Continued negative for disc herniation or spinal canal stenosis. 3. Again incidental scoliosis and T12 Schmorl node.
[2023-08-14 17:10] VITALS: BP 144/59
[2023-08-14 17:17] VITALS: O2SAT 98
[2023-08-14] MEDS ORDERED: NORCO 5/325 MG ONE (17:46)
[2023-08-14] MEDS: NORCO 5/325 MG PO ONE (17:47)
[2023-08-14] MEDS: Cyclobenzaprine 10 MG PO SCH (17:49)
== END 2023-08-14 17:58 | disposition home or self-care (01) ==
LOC: ED 11:52
DX: M51.36 Other intervertebral disc degeneration, lumbar region (principal); M54.50 Low back pain, unspecified; I10 Essential (primary) hypertension; Z79.899 Other long term (current) drug therapy
CPT/HCPCS: 72131; 72148; 96372; 99284; J1100; J2270; A9270-GY